=== PATIENT | female | born 1985 | race African-American/Black ===

== ENCOUNTER 2016-11-22 22:56 | Emergency (ER) | payer OTHER ==
[~2016-11-22] VITALS: Ht 170.2 cm; Wt 93.2 kg
[2016-11-22] MEDS ORDERED: PREN-155 PO (23:14)
[2016-11-22] MEDS ORDERED: ASPI-556 PO (23:14)
[2016-11-23 00:56] LABS: APPEARANCE,URINE CLEAR (CLEAR); GLUCOSE, URINE (UA) NEGATIVE (NEGATIVE); KETONES,URINE NEGATIVE (NEGATIVE); LEUKOCYTE ESTERASE ,URINE NEGATIVE (NEGATIVE); OCCULT BLOOD,URINE MODERATE (NEGATIVE); PH,URINE 6.5 (5.0-8.0); PROTEIN,URINE NEGATIVE (NEGATIVE)
[2016-11-23 01:00] LABS: ADD UA MICROSCOPIC YES
[2016-11-23 01:28] VITALS: BP 126/68
[2016-11-23 01:38] LABS: SQUAMOUS EPITHELIAL CELL,UR Rare /LPF (None Seen); WBC,URINE 0-2 /HPF (0-5)
== END 2016-11-23 01:34 | disposition home or self-care (01) ==
LOC: EMS 22:59
DX: O20.9 Hemorrhage in early pregnancy, unspecified (principal); Z3A.19 19 weeks gestation of pregnancy; Z79.82 Long term (current) use of aspirin
CPT/HCPCS: 76801; 76817; 86901; 99285